=== PATIENT | male | born 1990 | race African-American/Black ===

== ENCOUNTER 2021-01-05 18:53 | Emergency (ER) | payer OTHER ==
[~2021-01-05] VITALS: Ht 193 cm; Wt 95.5 kg
[2021-01-05 19:27] VITALS: BP 128/79
== END 2021-01-05 21:00 | disposition left against medical advice (07) ==
LOC: EMS 18:53
DX: Z53.21 Procedure and treatment not carried out due to patient leaving prior to being seen by health care provider (principal)